=== PATIENT | male | born 1955 | race Caucasian/White ===

== ENCOUNTER 2019-11-07 18:13 | Emergency (ER) | payer BC ==
[2019-11-07] MEDS ORDERED: Sodium Chloride 0.9% 10 ML Syringe FLUSH PRN (18:20)
[2019-11-07] MEDS ORDERED: fentaNYL 100 MCG/2 ML SDV IVPUSH ONE ×2 (18:20→19:00)
[2019-11-07] MEDS ORDERED: Ondansetron 4 MG/2 ML SDV IVPUSH ONE (18:20)
--- NOTE | 2019-11-07 18:34 | EDM.PDOC ---
ED HPI GENERAL MEDICAL PROBLEM - General Time Seen by Provider: 11/07/19 18:20 Source of Information: Reports: Patient History Limitations: Reports: No Limitations - History of Present Illness INITIAL COMMENTS - FREE TEXT/NARRATIVE: PT comes to the ED per self ambulatory with complaints of an injury to his left wrist. Just prior to arrival the patient was climbing on some hay jose when it gave away and he fell on an outstretched left arm and extended left wrist sustaining a painful deformed left forearm. He denies any head injury neck injury or back injury. Denies loc. Denies head neck or back pain. ONly complains of pain to his left wrist. Denies paraesthesias. No pain in his left shoulder or elbow. - Related Data Allergies Allergy/AdvReac Type Severity Reaction Status Date / Time venom-honey bee Allergy Swelling Verified 11/07/19 18:32 [bee venom (honey bee)] Home Meds: Home Meds Aspirin [Halfprin] 81 mg PO DAILY 03/13/14 [History] EPINEPHrine [Epipen] 0.3 mg IM PRN 03/13/14 [History] Review of Systems - Review of Systems Review Of Systems: Comprehensive ROS is negative, except as noted in HPI. ED EXAM, GENERAL - Physical Exam Exam: See Below Exam Limited By: No Limitations General Appearance: Alert, WD/WN, Mild Distress Eye Exam: Bilateral Eye: PERRL Head: Atraumatic, Normocephalic Neck: Normal Inspection, Supple, Non-Tender, Full Range of Motion. No: Tender Midline Respiratory/Chest: No Respiratory Distress, Lungs Clear, Normal Breath Sounds, No Accessory Muscle Use Cardiovascular: Normal Peripheral Pulses, Regular Rate, Rhythm Peripheral Pulses: 2+: Radial (L), Radial (R) Extremities: Normal Range of Motion, Non-Tender. No: Normal Inspection (Left wrist has an obvious dorsal angulation deformity. No breaks in the skin. Concerns for colles fracture. Able to flex and extend all the joints of the fingers to include MCP PIP DIP joints. cap refill appropriate. ) Neurological: Alert, Oriented, Normal Cognition, Normal Gait, No Motor/Sensory Deficits Psychiatric: Normal Affect, Normal Mood Skin Exam: Warm, Dry, Intact, Normal Color ED TRAUMA EXTREMITY PROCEDURES - Splinting Left Upper Extremity Splint Site: left forearm Pre-Procedure NV Status: Normal Post-Procedure NV Status: Normal Splint Material: Fiberglass Splint Design: Sugar Tong, Sling Applied & Form Fitted By: Provider Provider Post-Splint Application NV Check: NV Status Normal, Good Position Complications: No Course - Orders/Labs/Meds Orders: Active Orders 24 hr Category Date Time Status Wrist Comp Min 3V Lt [CR] Stat Exams 11/07/19 18:20 Ordered Sodium Chloride 0.9% [Saline Flush] Med 11/07/19 18:20 Ordered 10 ml FLUSH ASDIRECTED PRN Peripheral IV Insertion Adult [OM.PC] Stat Oth 11/07/19 18:20 Ordered Medication Orders Sodium Chloride (Saline Flush) 10 ml FLUSH ASDIRECTED PRN PRN Reason: Keep Vein Open Meds: Medications Generic Name Dose Route Start Last Admin Trade Name Freq PRN Reason Stop Dose Admin Sodium Chloride 10 ml 11/07/19 18:20 Saline Flush FLUSH ASDIRECTED PRN Keep Vein Open Discontinued Medications Generic Name Dose Route Start Last Admin Trade Name Freq PRN Reason Stop Dose Admin Fentanyl 50 mcg 11/07/19 18:20 Sublimaze IVPUSH 11/07/19 18:21 ONETIME ONE Ondansetron HCl 4 mg 11/07/19 18:20 Zofran IVPUSH 11/07/19 18:21 ONETIME ONE - Radiology Interpretation Free Text/Narrative:: Initial xray read extemporaneously by myself shows a comminuted distal radius fracture with dorsal angulation and appears to be intra-articular as well. Per radiology, Colles type fracture of the left wrist with dorsal angulation. - Re-Assessments/Exams Free Text/Narrative Re-Assessment/Exam: 11/07/19 18:38 IV lock Fentanyl 50mcg IVP Zofran 4mg IVP 11/07/19 19:25 I called and spoke with Dr. Rodriguez the ortho station mechanic at [facility]. HPI ER COURSE findings and concerns were relayed to him over the phone and he had the images available at the time of consultation. Recommendation for sugar tong splint sling. the patient was given more fentanyl for pain control and a well padded sugar tong splint was placed by myself. Sling for comfort. Neuro/vascular intact ice applied. Patient was comfortable with this plan and his questions were answered. Departure - Departure Time of Disposition: 19:10 Disposition: Home, Self-Care 01 Clinical Impression: Closed Colles' fracture Qualifiers: Encounter type: initial encounter Laterality: left Qualified Code(s): S52.532A - Colles' fracture of left radius, initial encounter for closed fracture - Discharge Information *PRESCRIPTION DRUG MONITORING PROGRAM REVIEWED*: Not Applicable Instructions: Cast or Splint Care, Adult, [id number], Pain Medicine Instructions, [id number], Colles Fracture, RICE Therapy for Routine Care of Injuries, [id number] Additional Instructions: Tylenol and or Ibuprofen as needed for pain. Splint at all times. Sling for comfort. RICE therapy, ICE as much as possible and elevate above the level of the heart. DO not get the splint wet. Rest arm as much as possible. If pain not controlled with above. Mead 1 tablet every 4 hrs with food as needed for pain. Caution sedation. Starter pack given in the ED. #5. See Dr. Samaniego at [facility] on [facility] [place] 11/08/19 at 9am for follow up and plans for surgery in the future. Return to the ED if new or worsening symptoms. - My Orders Last 24 Hours: My Active Orders 11/07/19 18:20 Wrist Comp Min 3V Lt [CR] Stat Sodium Chloride 0.9% [Saline Flush] 10 ml FLUSH ASDIRECTED PRN Peripheral IV Insertion Adult [OM.PC] Stat - Assessment/Plan Last 24 Hours: My Active Orders 11/07/19 18:20 Wrist Comp Min 3V Lt [CR] Stat Sodium Chloride 0.9% [Saline Flush] 10 ml FLUSH ASDIRECTED PRN Peripheral IV Insertion Adult [OM.PC] Stat Assessment:: Left closed Colles fracture. Sugar tong splint to the left arm applied by myself. Plan: Tylenol and or Ibuprofen as needed for pain. Splint at all times. Sling for comfort. RICE therapy, ICE as much as possible and elevate above the level of the heart. DO not get the splint wet. Rest arm as much as possible. If pain not controlled with above. Mead 1 tablet every 4 hrs with food as needed for pain. Caution sedation. Starter pack given in the ED. See Dr. Samaniego at [facility] on [facility] [place] 11/08/19 at 9am for follow up and plans for surgery in the future. Return to the ED if new or worsening symptoms.
--- NOTE | 2019-11-07 19:00 | CR ---
[id number] RAD/RAD Wrist Left 3V Min EXAM: RAD Wrist Left 3V Min CLINICAL DATA: TRAUMA COMPARISON: NO PREVIOUS SIMILAR EXAM IS AVAILABLE. FINDINGS: A distal left radial diametaphyseal fracture with articular involvement is seen There is dorsal angulation of the distal fracture fragment. IMPRESSION: COLLES' TYPE FRACTURE Easton Yousif MD 11/07/19 [id number] Thank you for allowing us to participate in the care of your patient.
[2019-11-07] MEDS ORDERED: Acetaminophen/HYDROcodone 325-5 MG Tab PO ONE (19:17)
[2019-11-07] MEDS ORDERED: Take Home: Acetaminophen/HYDROcodone 325-5 MG, 5 Tab Pack PO ONE (19:17)
== END 2019-11-07 19:30 | disposition home or self-care (01) ==
LOC: VM.ED 18:13
DX: S52.532A Colles' fracture of left radius, initial encounter for closed fracture (principal); Z91.030 Bee allergy status; Z79.82 Long term (current) use of aspirin; W17.89XA Other fall from one level to another, initial encounter
CPT/HCPCS: 29125; 73110-LT; 96374; 96375; 96376; 99283-25; A9270-GY; J2405; J3010